=== PATIENT | male | born 1950 | race Caucasian/White ===

== ENCOUNTER 2021-10-29 10:22 | Emergency (ER) | payer MEDICARE, OTHER ==
[~2021-10-29 10:22] MED LIST: ALDACTONE25 MG PO; ASCORBIC ACID500 MG PO; ASPIRIN CHEWABL81 MG PO; AUGMENTIN 875-1 EACH PO; BENICAR *OUT OF20 MG PO; BENTYL10 MG PO; CERTAGEN1 EACH PO; CHONDROITIN S5000 GM PO; CO Q10100 MG PO; COLACE100 MG PO; COZAAR100 MG PO; FLECAINIDE ACET50 MG PO; FLUOCINOLON118.28 ML TOP; GLUCOSAMINE H1500 MG PO; HCTZ25 MG PO; INDOCIN SR75 MG PO; K-DUR20 MEQ PO; LOPROX120 ML TOP; LOVAZA1 GM PO; METHYLPRED PO; MILK THISTLE500 MG PO; NORVASC5 MG PO; PERCOCET 7.5/321 TAB PO; SILDENAFIL CITR50 MG PO; SINGULAIR10 MG PO; SYNTHROID25 MCG PO; UROCIT-K10 MEQ PO; VITAMIN B-121000 MC1 PO; VITAMIN D310000 UNI1 PO; VITAMIN E400 UNI2 PO; ZINC CHELATED50 MG PO; ZOFRAN8 MG PO
[2021-10-29 12:00] LABS: BASOPHIL 0.5 % (0-2); EOSINOPHIL 1.1 % (0-7); HCT 44.1 % (42.0-52.0); HGB 15.1 g/dl (13.2-18.0); LYMPHOCYTE 26.1 % (15-48); MCH 30.8 pg (25.0-31.0); MCHC 34.2 g/dL (32.0-36.0); MONOCYTE 18.7 % (0-12); NEUTROPHIL 53.4 % (41-80); NRBC 0; PLT 155 K/uL (150-400); WBC 5.6 K/uL (4.0-10.5)
[2021-10-29 12:25] LABS: ALBUMIN 4.1 g/dL (3.4-5.0); BILIRUBIN - TOTAL 0.8 mg/dL (0.2-1.0); BUN/CREAT RATIO (CALC) 30.9 RATIO; C-REACTIVE PROTEIN 1.3 mg/dL (<=0.90); CREATININE 0.81 mg/dL (0.67-1.17); GLOBULIN (CALCULATION) 3.4 g/dL; POTASSIUM 3.8 mmol/L (3.5-5.1); TOTAL PROTEIN 7.5 g/dL (6.4-8.2); URIC ACID 7.1 mg/dL (3.5-7.2)
[2021-10-29] MEDS ORDERED: NORCO 5-325 TA1 EACH PO (13:29)
== END 2021-10-29 14:13 | disposition home or self-care (01) ==
LOC: FER 10:22
PROVIDERS: Emergency Medicine
DX: M10.9 Gout, unspecified (principal); E78.5 Hyperlipidemia, unspecified; Z79.82 Long term (current) use of aspirin; Z79.899 Other long term (current) drug therapy; Z88.5 Allergy status to narcotic agent
CPT/HCPCS: 36415; 73590; 73610; 80053; 84145; 84550; 85025; 85379; 86140; J1170; J2405; J2930